=== PATIENT | female | born 2000 | race Two or more races ===

== ENCOUNTER 2024-12-24 13:23 | Emergency (ER) | payer MEDICAID, SELFPAY ==
[2024-12-24 13:39] VITALS: BP 126/91; PULSE 99; RESP 18; TEMP 36.6; O2SAT 96; BMI 24.6
--- NOTE | 2024-12-24 13:49 | PD.EDRME ---
Rapid Medical Screening Exam RME Arrival date/time: 12/24/24 13:23 Chief Complaint: Nausea/Vomiting/Diarrhea Vital signs: Vital Signs Temperature 98 F 12/24/24 13:39 Pulse Rate 99 12/24/24 13:39 Respiratory Rate 18 12/24/24 13:39 Blood Pressure 126/91 H 12/24/24 13:39 Pulse Oximetry (%) 96 12/24/24 13:39 Oxygen Delivery Method Room Air 12/24/24 13:39 Pulse ox is 96% room air Vital signs reviewed by provider: Yes RM Narrative: 24-year-old female presents to the ED with a complaint of using her mother's Wegovy which caused her to vomit up to 30 times within the last 3 days. Also complains of intense back pain.
--- NOTE | 2024-12-24 14:09 | EDNOTE_ITS ---
Nausea/Vomit./Diarrhea-RME/HPI General Chief complaint: Nausea/Vomiting/Diarrhea Stated complaint: VOMITING AFTER 3 DAY FAST AND 2.4 WEGOVY SHOT Time Seen by Provider: 12/24/24 14:10 Arrival date/time: 12/24/24 13:23 Limitations: no limitations RME / HPI RME / HPI Narrative: 24-year-old female presents to the ED with a complaint of using her mother's Wegovy which caused her to vomit up to 30 times within the last 3 days. Also complains of intense back pain. DR. ROBBINS MAIN ED EVALUATION: 24 year old female with history of scoliosis presents to the ED for evaluation of nausea and vomiting beginning at 7PM last night. Reports she has had ~ 30 episodes of vomiting since onset. Accompanied by overall feeling unwell, my heart pounding , abdominal and back pain. Patient mentioned her symptoms began shortly after taking her mothers Wegovy (2.4mg) yesterday. Additionally states she did a 3-day fast prior to taking the medication. Related Data Allergies Allergy/AdvReac Type Severity Reaction Status Date / Time No Known Allergies Allergy Verified 12/24/24 13:27 Review of Systems Review of Systems Systems Reviewed: All systems reviewed, normal except as documented Past Medical History Past Medical History CARDIAC: Negative Congestive Heart Failure RESPIRATORY: Negative Chronic Obstructive Pulmonary Disease (COPD) GENITOURINARY: Negative Renal Disease MUSCULOSKELETAL: Positive Scoliosis ENDOCRINE: Negative Diabetes Mellitus Type 1 or Diabetes Mellitus Type 2 Social History SMOKING STATUS: Never smoker ED Exam General Limitations: Present no limitations General appearance: Present alert and in no apparent distress Head Head exam: Present atraumatic, normocephalic and normal inspection Eye Eye exam: Present normal appearance, PERRL and EOMI ENT ENT exam: Present normal exam, normal oropharynx and mucous membranes moist Neck Neck exam: Present normal inspection, full ROM and trachea midline Chest Chest inspection: Present normal inspection and symmetric chest wall rise Respiratory Respiratory exam: Present normal lung sounds bilaterally Cardiovascular Cardiovascular exam: Present tachycardia and normal heart sounds Abdominal Exam Abdominal exam: Present soft and normal bowel sounds Extremities Exam Extremities exam: Present normal inspection and full ROM Back Exam Back exam: Present normal inspection and full ROM Neurological Exam Neurological exam: Present alert, oriented X3 and CN II-XII intact Psychiatric Psychiatric exam: Present normal affect and normal mood Skin Skin exam: Present warm, dry, intact and normal color Course Quality Measures none Orders Category Date Time 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 12/24/24 14:11 Active Continuous Pulse Oximetry STAT Care 12/24/24 14:11 Completed Insert IV NOW Care 12/24/24 13:50 Active Insert IV STAT Care 12/24/24 14:11 Active NPO STAT Care 12/24/24 14:[address] abdomen pelvis wo con Stat Exams 12/24/24 14:11 Completed CBC Stat Lab 12/24/24 14:17 Completed CMP [Comprehensive Metabolic Panel] Stat Lab 12/24/24 14:17 Completed HCG Qualitative,Urine Stat Lab 12/24/24 14:58 Completed Lipase Stat Lab 12/24/24 14:17 Completed Magnesium Stat Lab 12/24/24 14:17 Completed Prothrombin Time with INR Stat Lab 12/24/24 14:17 Completed Urinalysis Stat Lab 12/24/24 14:58 Completed Famotidine Inj [Pepcid Inj] Med 12/24/24 14:20 Discontinued 20 mg IVP X1 ONE Ketorolac Inj [Toradol Inj] Med 12/24/24 13:55 Discontinued 30 mg IVP X1 ONE Morphine Inj Med 12/24/24 14:24 Discontinued 2 mg IVP X1 ONE Ondansetron Inj [Zofran Inj] Med 12/24/24 13:50 Discontinued 4 mg IVP X1 ONE Ondansetron Inj [Zofran Inj] Med 12/24/24 14:25 Discontinued 4 mg IVP X1 ONE Sodium Chloride 0.9% 1000 ml [Ns] 1,000 ml Med 12/24/24 13:51 Discontinued IV 999 mls/hr Sodium Chloride 0.9% 1000 ml [Ns] 1,000 ml Med 12/24/24 14:11 Discontinued IV 999 mls/hr Reevaluation(s) Reevaluation #1: Patient remains clinically stable throughout the emergency department visit. We reviewed all the results, analysis, and treatment plans. Patient is amenable to discharge. Strict return precautions were outlined. Patient was discharged in stable condition. Time: 16:00 Vital Signs Vital signs: Vital Signs Temperature 98 F 12/24/24 13:39 Pulse Rate 99 12/24/24 13:39 Respiratory Rate 18 12/24/24 13:39 Blood Pressure 126/91 H 12/24/24 13:39 Pulse Oximetry (%) 96 12/24/24 13:39 Oxygen Delivery Method Room Air 12/24/24 13:39 Pulse ox is 96% on room air which is adequate. Nausea/Vomiting/Diarrhea MDM Narrative MDM Narrative:: I Cynthia Pineda, najma scribing for and in the presence of Dr. Robbins. Urinalysis today shows WBC of 51 and squamous of 21. Will await urine culture, no treatment for now. Patient data External records reviewed:: None (No previous ED visits for review ) Clinical information provided by:: patient Social determinants that could affect healthcare access:: none Patient has the following chronic illnesses:: Scoliosis How is presenting disease/condition affected by chronic disease/condition?: uneffected by Evaluation data The following diagnostics were reviewed and interpreted by me:: lab results Lab and/or radiology exams considered but not ordered:: None Interpretation Summary: Ordering Physician: Sukhdev Robbins MD Date of Service: 12/24/24 Procedure(s): CT abdomen pelvis wo con Accession Number(s): [id number] cc: Sukhdev Robbins MD; Scott Yin MD; Joel Franz MD~ Examination: CT abdomen and pelvis without contrast. Coronal 3-D reconstructions. Sagittal 2-D reconstructions. Date and time of exam:December 24, 2024 1542 hours INDICATIONS: Abdominal pain with severe nausea and vomiting today CTDI: vol (mGy): 6.85 DLP: (mGycm): 346 Technique: Axial images of the abdomen have been obtained, 3 mm slice thickness Intravenous contrast material has not been administered. Low dose protocols were performed. One or more of the following dose reduction techniques were used; automated exposure control, adjustment of the mA and/or KV according to patient size, use of iterative reconstruction technique. Findings: No focal liver or splenic lesions No gallstones No pancreatic or adrenal mass No renal or ureteral calculi, no hydronephrosis Aorta normal size Small lymph nodes in the right lower mesentery Normal appendix No bowel obstruction No diverticulitis Anteverted uterus with intrauterine device satisfactory position Urinary bladder intact Osseous structures intact IMPRESSION: No renal or ureteral calculi, no hydronephrosis Normal appendix Multiple small lymph nodes in the right lower mesentery which can be seen with mesenteric adenitis No bowel obstruction or diverticulitis Dictated By: Joel Franz MD Signed By: <Electronically signed by Joel Franz MD in [place]> 12/24/24 1552 Medications / Prescriptions Medications / Prescriptions considered but not ordered:: None Medication administrations:: Medication Administration History Discontinued Medications Famotidine (Famotidine Inj 10 Mg/Ml Vial 2 Ml) 20 mg IVP X1 ONE Stop: 12/24/24 14:21 Last Admin: 12/24/24 14:43 Dose: 20 mg Documented By: EF Sodium Chloride (Ns) 1,000 mls @ 999 mls/hr IV .Q1H1M ONE Stop: 12/24/24 14:51 Last Infusion: 12/24/24 15:22 Dose: Infused Documented By: Admin: 12/24/24 14:21 Dose: 999 mls/hr Documented By: EF Sodium Chloride (Ns) 1,000 mls @ 999 mls/hr IV .Q1H1M ONE Stop: 12/24/24 15:11 Last Infusion: 12/24/24 15:44 Dose: Infused Documented By: Admin: 12/24/24 14:43 Dose: 999 mls/hr Documented By: EF Ketorolac Tromethamine (Ketorolac Inj 30 Mg/Ml Vial) 30 mg IVP X1 ONE Stop: 12/24/24 13:56 Last Admin: 12/24/24 14:48 Dose: Not Given Documented By: EF Non-Admin Reason: Cancelled by Provider Morphine Sulfate (Morphine Sulf Inj 10 Mg/Ml Vial) 2 mg IVP X1 ONE Stop: 12/24/24 14:25 Last Admin: 12/24/24 14:43 Dose: 2 mg Documented By: EF Ondansetron HCl (Ondansetron Inj 2 Mg/Ml Inj 2 Ml) 4 mg IVP X1 ONE; Protocol Stop: 12/24/24 13:51 Last Admin: 12/24/24 14:21 Dose: 4 mg Documented By: EF Ondansetron HCl (Ondansetron Inj 2 Mg/Ml Inj 2 Ml) 4 mg IVP X1 ONE; Protocol Stop: 12/24/24 14:26 Last Admin: 12/24/24 14:39 Dose: Not Given Documented By: EF Non-Admin Reason: Duplicate Medication on eMAR See above Consultations Consultation(s) initiated? (list below): No Diagnosis Nausea Differential Diagnosis: gastroenteritis, drug-induced nausea and vomiting and dehydration Most likely diagnosis given after review of the tests above:: Gastroenteritis Leukocytosis Admission Indicated Admission indicated?: not indicated Admission Request Was there a request for admission?: No Disposition Plan Disposition Plan: Discharge Discharge Attestation Discharge Attestation: The patient and all family members were given an opportunity to ask questions and understood the discharge instructions. Discharge instructions specifically effects, indications for sooner follow up or return to the emergency department, and the expected course of current diagnosis. Patient condition: Stable Discharge Plan Plan Patient Disposition: HOME (Self Care) Prescriptions/Referrals Referrals: Scott Yin MD [Primary Care Provider] - In 1 week Problem List Clinical Impression: Gastroenteritis, Leukocytosis Patient/Caregiver Discharge Instructions Education Materials: ED Gastroenteritis, Noninfectious Additional Instructions: Full liquid diet for the next 24 hours. Follow-up with your primary care doctor in 2-3 days for urine culture check. You can return to the emergency department sooner if symptoms worsen or if you notice any new, concerning issues. Print Language: [place]an Stand Alone Forms: Melanie Award Info., Patient Portal Info Letter
[2024-12-24] MEDS: SODIUM CHLORIDE 0.9% 1000 ML 1,000 ML 999 ML IV ×2 (14:21→14:43)
[2024-12-24] MEDS: ONDANSETRON INJ 2 MG/ML INJ 2 ML 4 MG IVP (14:21)
[2024-12-24 14:26] LABS: Basophils # (Auto) 0.1 Thou/mm3 (0.0-0.2); Basophils % (Auto) 0 % (0-2.5); Eosinophils # (Auto) 0.0 Thou/mm3 (0.0-0.5); Eosinophils % (Auto) 0 % (0-10); Hematocrit 45.6 % (36.0-46.0); Hemoglobin 15.9 g/dL (12.0-16.0); Immature Granulocytes Auto 0.07 Thou/mm3 (0.00-0.00); Lymphocytes # (Auto) 1.9 Thou/mm3 (1.0-4.8); Lymphocytes % (Auto) 11 % (10-50); Mean Corpuscular HGB Conc 34.9 g/dl (31.0-37.0); Mean Corpuscular Hemoglobin 30.2 pg (25.0-35.0); Mean Corpuscular Volume 87 fL (80-100); Monocytes # (Auto) 0.6 Thou/mm3 (0.0-0.8); Monocytes % (Auto) 4 % (0-12); Neutrophils # (Auto) 14.2 Thou/mm3 (1.8-7.7); Neutrophils % (Auto) 84 % (37-80); Nucleated Red Blood Cell # 0.00 Thou/mm3 (0.00-0.00); Nucleated Red Blood Cell % 0 /100 WBC (0); Platelet Count 310 Thou/mm3 (140-440); RDW Standard Deviation 37.3 fL (36.4-46.3); Red Blood Count 5.26 Miln/mm3 (4.00-5.20); White Blood Count 16.9 Thou/mm3 (3.6-11.0)
[2024-12-24] MEDS: FAMOTIDINE INJ 10 MG/ML VIAL 2 ML 20 MG IVP (14:43)
[2024-12-24] MEDS: MORPHINE SULF INJ 10 MG/ML VIAL 2 MG IVP (14:43)
[2024-12-24 14:45] LABS: Alanine Aminotransferase 14 U/L (10-49); Albumin, Serum 5.5 gm/dL (3.5-5.0); Albumin/Globulin Ratio 1.9 (1.2-2.2); Alkaline Phosphatase 70 U/L (46-116); Anion Gap 17 (7-16); Aspartate Amino Transferase 19 U/L (0-34); BUN/Creatinine Ratio 14 Ratio (12-20); Bilirubin,Total 1.3 mg/dL (0.3-1.2); Blood Urea Nitrogen 11 mg/dL (9-23); Calcium 9.9 mg/dL (8.3-10.6); Calcium (Corrected) 9.9 mg/dL (8.5-10.1); Carbon Dioxide 16.6 mMol/L (20.0-31.0); Chloride 103 mMol/L (98-107); Creatinine (Component) 0.8 mg/dL (0.6-1.3); Estimated Creatinine Clearance 89.5 mL/min (>60); Globulin 2.9 gm/dL (2.3-3.5); Glucose 80 mg/dL (74-106); Lipase 35 U/L (12-53); Magnesium 1.8 mg/dL (1.6-2.6); Osmolality,Calculated 272 (275-295); Potassium 4.2 mMol/L (3.4-5.1); Sodium 137 mMol/L (136-145); Total Protein 8.4 gm/dL (5.7-8.2); eGFR > 60 See Note
[2024-12-24 14:56] LABS: INR 1.1 (0.9-1.3); Prothrombin Time 11.6 Seconds (9.0-12.2)
[2024-12-24 15:01] LABS: Collection Type, Urine Clean Catch
[2024-12-24 15:12] LABS: HCG Qualitative,Urine Negative
[2024-12-24 15:27] LABS: Bacteria,Urine 1+; Bilirubin,Urine Negative (Negative); Blood,Urine Trace (Negative); Color,Urine Yellow (Lt Yel-Yel); Glucose, Urine Negative (Negative); Ketones,Urine 4+ (Negative); Leukocyte Esterase,Urine Positive (Negative); Nitrite,Urine Negative (Negative); PH,Urine 6.0 (5.0-7.0); Protein,Urine 1+ (Neg - Trace); RBC,Urine 4 /hpf (0-3); Specific Gravity,Urine 1.034 (1.001-1.035); Squamous Epithelial Cell,Urine 21 /hpf (0-5); Urobilinogen,Urine Negative mg/dL (0.0-1.0); WBC,Urine 51 /hpf (0-5)
[2024-12-24 15:39] LABS: Clarity,Urine Hazy (Clear/Hazy)
[2024-12-24 16:31] VITALS: BP 120/78; PULSE 100; RESP 16; O2SAT 100
== END 2024-12-24 16:33 | disposition home or self-care (01) ==
PROVIDERS: Physician Assistant; Emergency Provider Family Medicine; PCP Family Medicine
DX: K52.9 Noninfective gastroenteritis and colitis, unspecified (principal)
CPT/HCPCS: 36415; 74176; 80053; 81001; 81025; 83690; 83735; 85025; 85610; 96361; 96374; 96375; 99283; J2270; J2405; J3490; J7030